=== PATIENT | female | born 1975 | race Caucasian/White ===

== ENCOUNTER 2016-08-08 10:24 | Emergency (ER) | payer OTHER ==
[2016-08-08 11:25] LABS: COLOR YELLOW; LEUKOCYTE ESTERASE,URINE TRACE (NEGATIVE); NITRITE,URINE NEGATIVE (NEGATIVE)
[2016-08-08 11:37] LABS: BACTERIA 2+ /hpf (NONE SEEN); MUCUS TRACE /lpf (NONE-1+)
--- NOTE | 2016-08-08 12:04 | EDPHY ---
H & P Stated Complaint: 20 wks preg; R flank pain and dysuria;body aches;subj fever Time Seen by Provider: 08/08/16 11:08 HPI/ROS: CHIEF COMPLAINT: Flank pain HISTORY OF PRESENT ILLNESS: This is a 40-year-old female P 1 G 0 who is 20 weeks complaining of right flank pain. 2 days ago she noted diffuse aches and pains and subsequently developed right flank pain. The flank pain is worse with urination. She also reports urinary frequency (possibly related to her ) and dysuria. She has not had fever but woke up drenched in sweat for the past 2 nights. She does have a history of urinary tract infection and pyelonephritis prior to this . She was treated for urinary tract infection at the end of May. She denies abdominal pain, nausea, vomiting, diarrhea, and vaginal bleeding. REVIEW OF SYSTEMS: A ten point review of systems was performed and is negative with the exception of the items mentioned in the HPI. Source: Patient Exam Limitations: No limitations - Personal History LMP (Females 10-55): EDC: 12/27/16 Current Tetanus Diphtheria and Acellular Pertussis (TDAP): Yes - Medical/Surgical History Other PMH: - Social History Smoking Status: Never smoked Alcohol Use: None Additional Social History: She is . She works with [employer]. - Physical Exam Exam: General Appearance: Alert. Vital signs reviewed. Eyes: Pupils equal and round, no conjunctival injection, no discharge. Anicteric. ENT, Mouth: Mucous membranes are moist, no oropharyngeal erythema or edema. Neck: No lymphadenopathy, supple. Respiratory: Lungs are clear to auscultation; no wheezes, rales, or rhonchi. Cardiovascular: Regular rate and rhythm; no murmur, rub, or gallop. Gastrointestinal: Abdomen is gravid, soft and nontender, bowel sounds normal. heart tones 160. Skin: Warm and dry, no rashes on exposed skin, normal color. Back: Nontender to palpation over the thoracolumbar spine. Right CVAT. Extremities: No lower extremity edema, no calf tenderness or swelling. Neurological: Alert and oriented. Moving all four extremities easily and equally. Psychiatric: Normal affect. Constitutional: Initial Vital Signs Temperature (C) 36.5 C 08/08/16 10:26 Heart Rate 84 08/08/16 10:26 Respiratory Rate 16 08/08/16 10:26 Blood Pressure 130/78 H 08/08/16 10:26 O2 Sat (%) 98 08/08/16 10:26 O2 Delivery Mode Room Air Allergies/Adverse Reactions: No Known Allergies Allergy (Unverified 08/08/16 10:31) Home Medications: Medication Instructions Recorded Ferrous Sulfate [Iron] 325 mg PO 08/08/16 Vits W-Ca,Fe,FA(<1Mg) 1 each PO 08/08/16 [ Vitamins] Medical Decision Making ED Course/Re-evaluation: 40-year-old female who is 20 weeks . heart tones are 160. She presents with signs and symptoms of urinary tract infection, possible early pyelonephritis. White blood cell count is normal. Urinalysis shows leukocyte esterase, 2+ bacteria. I have spoken with the on-call provider for OBGYN and it is recommended that she be seen on the L and D floor where she will receive IV fluids and antibiotics. An IV was placed in the emergency department. Fluids and antibiotics will be given by the OBGYN service. She was discharged from the emergency department in stable condition and will present immediately to the OBGYN service. Differential Diagnosis: Flank pain including but not limited to musculoskeletal causes, kidney stone, urinary tract infection, pyelonephritis, shingles, and intra-abdominal causes such as diverticulitis and appendicitis. - Data Points Laboratory Results: Laboratory Results 08/08/16 12:20 Departure - Departure Disposition: [facility] Inpatient Acute Clinical Impression: Pyelonephritis Condition: Good Instructions: Kidney Infection (ED) Additional Instructions: Go directly to labor and delivery where they will give you some intravenous fluids and start antibiotics. Referrals: Jacque Kendrick MD [Primary Care Provider] - As per Instructions Darline Hernandez CNM [Certified Nurse Computational Theory Scientist] - As per Instructions
[2016-08-08 12:41] VITALS: BP 122/68; PULSE 89; RESP 18; TEMP 98.4; O2SAT 96
[2016-08-08 13:32] LABS: % IMMATURE GRANULYOCYTES 0.3 % (0.0-1.1); ABSOLUTE IMMATURE GRANULOCYTES 0.02 10^3/uL (0.00-0.10); ADD DIFF? NO; ADD MORPH? NO; ADD SCAN? NO; ATYPICAL LYMPHOCYTE FLAG 0 (0-99); FRAGMENT RBC FLAG 0 (0-99); HEMATOCRIT 36.9 % (38.0-47.0); HEMOGLOBIN 12.3 g/dL (12.6-16.3); LEFT SHIFT FLG 0 (0-99); LIPEMIA HEMOLYSIS FLAG 80 (0-99); MEAN CELL HEMOGLOBIN 31.1 pg (27.9-34.1); MEAN CELL HEMOGLOBIN CONCENTR. 33.3 g/dL (32.4-36.7); MEAN CELL VOLUME 93.4 fL (81.5-99.8); MEAN PLATELET VOLUME 9.3 fL (8.7-11.7); PLATELET CLUMPS FLAG 0 (0-99); PLATELET COUNT 202 10^3/uL (150-400); RED BLOOD CELL COUNT 3.95 10^6/uL (4.18-5.33); RED CELL DISTRIBUTION WIDTH 13.5 % (11.5-15.2)
[2016-08-08] MEDS ORDERED: LR 1,000 ML IV ONE (14:00)
[2016-08-08] MEDS ORDERED: ACETAMINOPHEN 500 MG TAB PO ONE (14:00)
== END 2016-08-08 12:42 | disposition home or self-care (01) ==
DX: O23.02 Infections of kidney in pregnancy, second trimester (principal); Z3A.20 20 weeks gestation of pregnancy

== ENCOUNTER 2016-08-08 13:43 | Observation (INO) | payer OTHER ==
[2016-08-08] MEDS ORDERED: ceFAZolin 2 GM/DEXTROSE 100 ML IV ONE (13:56)
[2016-08-08] MEDS ORDERED: LR 1,000 ML IV ONE ×2 (13:58→14:00)
[2016-08-08] MEDS ORDERED: ACETAMINOPHEN 500 MG TAB PO ONE (14:00)
--- NOTE | 2016-08-08 14:02 | OBPROG ---
OBG Progress Note Assessment/Plan: Assessment: fever right flank pain doppler wnl iv fluids 1l Plan:tylenol, iv antibiotics labs cbc ua consult, macrobid for discharge fu wednesday in office 08/08/16 14:01 Subjective: right flank pain. afebrile 37.5 vs wnl doppler 160 denies leaking bleeding or cramping NKDA feeling not so great since rt flank pain since wednesday consult dr. marci fonseca for poc cbc run ua and culture sent Current Contraction Pattern: Other (Specify) (none) FHR (bpm): 160 (doppler) Membranes: Intact ICD10 Worksheet Patient Problems: Problems Problem Status Onset Pyelonephritis Acute
[2016-08-08] MEDS ORDERED: NITROFURANTOIN MACROBID 100 MG CAP PO ONE (15:40)
--- NOTE | 2016-08-08 15:45 | OBPROG ---
OBG Progress Note Assessment/Plan: Assessment: febrile unchanged 37.7 right flank pain/ diminished somewhat per patient doppler wnl antibiotics infused macrobid 200mg po now able to eat a regular diet cbc wnl dischagre instructions given for fu and reasons to return Plan: macrobid script given, fu wednesday. rest, fluids tylenol to assist with fever 08/08/16 14:01 08/08/16 15:42 ICD10 Worksheet Patient Problems: Problems Problem Status Onset Pyelonephritis Acute
--- NOTE | 2016-08-08 16:20 | GHP ---
[f rep st] HISTORY AND PHYSICAL DATE OF ADMISSION: 08/08/2016 Patient called early a.m. of 08/08/2016 to the answering service, and I returned her call. Patient with a complaint of right flank pain since Wednesday, some urinary symptoms since , and greater symptoms today on 08/08/2016 of frequency, urgency, as well as right flank pain whenever trying to urinate. Patient was transferred from the emergency room to Labor and Delivery, where patient recei chet IV fluids, 1 L of LR, Doppler where the heart rate of 19-6/7 weeks was 160. A call to Dr. Jordana Johnson for a consult on plan of care. Ancef 2 g IV piggyback was started on patient. Regular diet . The patient has received care through [facility] since initial . Patient is a 1 para 0, with an EDC of 12/27/2016, which gives her a gestational age of 19-6/7 weeks. De nies leaking, bleeding or any abdominal cramping, contractions. PAST MEDICAL HISTORY: Patient has frequent UTIs, denies other medical history. PAST SURGICAL HISTORY: Benign. HISTORY: Patient is a 1 para 0, AMA, at 19-6/7 weeks. In the emergency room a CBC was completed, WBC were 6.54, hematocrit 36.9, hemoglobin was 12.3, plat elet count was 202. The rest of the CBC was within normal limits. A UA was completed, trace leukoc ytes, 1-3 RBCs, WBCs were 10-15, 2+ bacteria, trace mucus, everything else was negative. PHYSICAL EXAMINATION: GENERAL: Patient was awake, alert and oriented x3 . LUNGS: Clear bilaterall y. Bowel sounds are positive in all 4 quadrants. ABDOMEN: Soft on palpation. VITAL SIGNS: Other than temperature were within normal limits. Initially, on initial assessment of temperature, patie nt was 37.5, several hours later, 37.7. EXTREMITIES: DTRs were 1+ bilaterally. Clonus is negative . Homans' sign is negative bilaterally. PLAN OF CARE: One dose of Ancef 2 g, IV fluids 1500 mL total, regular diet, Macrobid on discharge t o home as long as all of assessment while here in the hospital remains stable. Some medication for pain, hydrocodone, if patient needs it, call for appointment for Wednesday for a followup. Consult harry Johnson on plan of care. ALLERGIES: NKDA. /[id number]/MODL
== END 2016-08-08 16:15 | disposition home or self-care (01) ==
LOC: FLD 13:43
PROVIDERS: ADMIT Advanced Practice Midwife; ATTEND Obstetrics & Gynecology
DX: O23.42 Unspecified infection of urinary tract in pregnancy, second trimester (principal); O09.512 Supervision of elderly primigravida, second trimester; Z3A.19 19 weeks gestation of pregnancy
CPT/HCPCS: G0378; J0690

== ENCOUNTER 2016-12-25 06:05 | Inpatient (IN) | payer OTHER ==
[2016-12-25] MEDS ORDERED: LR 1,000 ML IV PRN (06:42)
[2016-12-25] MEDS ORDERED: EPSOM SALT 454 GM TP PRN (06:42)
[2016-12-25] MEDS ORDERED: OXYTOCIN/RINGERS LACTATE 1,000 ML IV PRN (06:42)
[2016-12-25] MEDS ORDERED: OLIVE OIL 118 ML BTL MISC PRN (06:42)
[2016-12-25] MEDS ORDERED: TERBUTALINE SULFATE 1 MG/ML VIAL IV PRN (06:42)
[2016-12-25 06:53] LABS: % IMMATURE GRANULYOCYTES 0.5 % (0.0-1.1); ABSOLUTE IMMATURE GRANULOCYTES 0.04 10^3/uL (0.00-0.10); ADD DIFF? NO; ADD MORPH? NO; ADD SCAN? NO; ATYPICAL LYMPHOCYTE FLAG 0 (0-99); FRAGMENT RBC FLAG 0 (0-99); HEMOGLOBIN 13.1 g/dL (12.6-16.3); LEFT SHIFT FLG 0 (0-99); LIPEMIA HEMOLYSIS FLAG 90 (0-99); MEAN CELL HEMOGLOBIN 32.7 pg (27.9-34.1); MEAN CELL HEMOGLOBIN CONCENTR. 34.5 g/dL (32.4-36.7); MEAN CELL VOLUME 94.8 fL (81.5-99.8); MEAN PLATELET VOLUME 10.6 fL (8.7-11.7); PLATELET CLUMPS FLAG 10 (0-99); PLATELET COUNT 183 10^3/uL (150-400); RED BLOOD CELL COUNT 4.01 10^6/uL (4.18-5.33); RED CELL DISTRIBUTION WIDTH 13.3 % (11.5-15.2)
[2016-12-25] MEDS ORDERED: OXYTOCIN/LR *LOW DOSE PROTOCOL IV SCH (07:30)
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
[2016-12-25 10:15] LABS: ALANINE AMINOTRANSFERASE 29 IU/L (9-52); ASPARTATE AMINOTRANSFERASE 28 IU/L (14-46); BILIRUBIN,TOTAL 1.2 mg/dL (0.1-1.4); BILIRUBIN-CONJUGATED 0.3 mg/dL (0.0-0.5); BILIRUBIN-UNCONJUGATED 0.9 mg/dL (0.0-1.1); CREATININE 0.6 mg/dL (0.6-1.0); GLOMERULAR FILTRATION RATE > 60; LACTATE DEHYDROGENASE 430 IU/L (313-618); URIC ACID 4.1 mg/dL (2.5-6.8)
[2016-12-25] MEDS ORDERED: fentaNYL 2MCG/ML/BUP 0.1% RTU 100 ML BAG EP ONE (13:18)
[2016-12-25] MEDS ORDERED: PHENYLEPHRINE HCL 100 MCG/ML SYR ONE (13:19)
[2016-12-25] MEDS ORDERED: BUPIVACAINE 0.25% 30 ML SDV ONE (13:19)
[2016-12-25] MEDS ORDERED: fentaNYL 100 MCG/2 ML INJ ONE ×2 (13:20→20:41)
--- NOTE | 2016-12-25 14:17 | OBPROG ---
OBG Labor Progress Note Assessment/Plan: Assessment: 41 y/o @ 39 5/7 weeks IOL secondary to AMA Plan: AROM for clear fluid now and she is comfortable with her epidural. Continue pitocin and will check in 2 hours. status is reassuring. 12/25/16 14:15 Subjective: Pt is now comfortable with her epidural. Objective: 12/25/16 06:35 12/25/16 09:30 Patient ABO/Rh O POSITIVE 12/25/16 06:35 Uric Acid 4.1 mg/dL (2.5-6.8) 12/25/16 09:30 Total Bilirubin 1.2 mg/dL (0.1-1.4) 12/25/16 09:30 Conjugated Bilirubin 0.3 mg/dL (0.0-0.5) 12/25/16 09:30 Unconjugated Bilirubin 0.9 mg/dL (0.0-1.1) 12/25/16 09:30 AST 28 IU/L (14-46) 12/25/16 09:30 ALT 29 IU/L (9-52) 12/25/16 09:30 Lactate Dehydrogenase 430 IU/L (313-618) 12/25/16 09:30 - SVE Dilation (cm): 4 Effacement (%): 75 Station: -2 Glover FHR (bpm): 140 FHR Pattern Variability: Moderate FHR Category: 1 Membranes: AROM Amniotic Fluid Color: Clear - Procedures Non-surgical Procedures: Amniotomy Oxytocin Orders Assessment - Pre-Induction/Augmentation Assessment Gestational Age: 39 week(s) and 5 day(s) ICD10 Worksheet Patient Problems: Problems Problem Status Onset Elective induction of labor planned Acute - ICD10 Problem Qualifiers (1) Elective induction of labor planned
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
[2016-12-25] MEDS ORDERED: ONDANSETRON 4 MG/2 ML VIAL IVP PRN ×2 (14:54→21:51)
[2016-12-25] MEDS ORDERED: PHENYLEPHRINE HCL 100 MCG/ML SYR IVP PRN (14:54)
--- NOTE | 2016-12-25 14:54 | POSTANESTH ---
Post Anesthetic Evaluation Cardiovascular Status: Normal, Stable Respiratory Status: Normal, Stable, Similar to Pre-op Cond. Level of Consciousness/Mental Status: Can Participate in Eval, Alert and Oriented Pain Control: Adequate, Prn Tx Ordered Nausea/Vomiting Control: Adequate, Prn Tx Ordered Complications Possibly Related to Anesthesia: None Noted
[2016-12-25] MEDS ORDERED: fentaNYL 2MCG/ML/BUP 0.1% RTU 100 ML EP SCH (15:00)
[2016-12-25] MEDS ORDERED: LR 500 ML IV SCH (15:00)
[2016-12-25] MEDS ORDERED: LR 500 ML IV ONE (20:35)
[2016-12-25] MEDS ORDERED: ceFAZolin 2 GM/DEXTROSE 100 ML IV ONE (20:35)
[2016-12-25] MEDS ORDERED: CEFAZOLIN 2 GM/DEXTROSE/100 ML BAG IV ONE (20:40)
[2016-12-25] MEDS ORDERED: LIDO/EPI 2% **for epidural** 20 ML SDV ONE (20:41)
[2016-12-25] MEDS ORDERED: LR 1,000 ML IV SCH (21:00)
[2016-12-25] MEDS ORDERED: METHYLERGONOVINE MAL 0.2 MG/ML INJ ONE (21:02)
[2016-12-25] MEDS ORDERED: ONDANSETRON 4 MG/2 ML VIAL ONE ×2 (21:13)
[2016-12-25] MEDS ORDERED: DEXAMETHASONE 4 MG/ML VIAL ONE ×2 (21:13)
[2016-12-25] MEDS ORDERED: OXYTOCIN 100 UNITS/10 ML VIAL ONE (21:13)
[2016-12-25 21:20] LABS: BASE EXCESS CORD -4.3 mEq/L (-13.6--3.2); CORD BLOOD PCO2 48.5 mmHg (37-60); PH ARTERIAL CORD BLOOD 7.29 (7.10-7.37)
[2016-12-25 21:38] LABS: PH VENOUS CORD BLOOD 7.33 (7.20-7.42)
[2016-12-25] MEDS ORDERED: MEPERIDINE 25 MG/ML SYR ONE (21:38)
[2016-12-25] MEDS ORDERED: NALOXONE HCL 0.4 MG/ML INJ IVP PRN (21:51)
[2016-12-25] MEDS ORDERED: SCOPOLAMINE HYDROBROMIDE 1.5 MG PATCH TD PRN (21:53)
--- NOTE | 2016-12-25 21:55 | POSTANESTH ---
Post Anesthetic Evaluation Cardiovascular Status: Normal, Stable Respiratory Status: Normal, Stable, Similar to Pre-op Cond. Level of Consciousness/Mental Status: Can Participate in Eval, Alert and Oriented Pain Control: Adequate, Prn Tx Ordered Nausea/Vomiting Control: Adequate, Prn Tx Ordered Complications Possibly Related to Anesthesia: None Noted (Epidural dosed for C Section, BP treated, comfortable for surgery, to PACU, no pain or nausea.)
[2016-12-25] MEDS ORDERED: PROMETHAZINE HCL 25 MG/ML INJ IVP PRN (22:36)
[2016-12-25] MEDS ORDERED: ACETAMINOPHEN 325 MG TAB PO PRN (22:36)
[2016-12-25] MEDS ORDERED: SIMETHICONE 80 MG TAB CHEW PO PRN (22:36)
[2016-12-25] MEDS ORDERED: DOCUSATE SODIUM 100 MG CAP PO PRN (22:36)
[2016-12-25] MEDS ORDERED: POLYETHYLENE GLYCOL 3350 17 GM PKT PO PRN (22:38)
[2016-12-25] MEDS ORDERED: KETOROLAC 30 MG/1 ML SDV ONE (22:38)
[2016-12-25] MEDS ORDERED: MAGNESIUM HYDROXIDE 30 ML UDCUP PO PRN (22:38)
[2016-12-25] MEDS ORDERED: LACTULOSE 20 GM/30 ML UDCUP PO PRN (22:38)
[2016-12-25] MEDS ORDERED: BISACODYL 10 MG SUPP PR PRN (22:38)
--- NOTE | 2016-12-25 22:44 | OBDEL ---
Info Type: Primary GBS+: No Indications for Delivery: Elective (AMA @ 39 5/7 weeks) Vaginal Delivery - Labor and Delivery Non-surgical Procedures: Amniotomy Cord Gases: Cord Gases Cord Blood PCO2 48.5 mmHg (37-60) 12/25/16 21:01 Cord Base Excess -4.3 mEq/L (-13.6--3.2) 12/25/16 21:01 Cord ABG pH 7.29 (7.10-7.37) 12/25/16 21:01 Cord VBG pH 7.33 (7.20-7.42) 12/25/16 21:01 Operative Report - Delivery Pre-op Diagnoses: IUP @ 39 weeks IOL secondary to AMA, with intolerance to labor Post-op Diagnoses: same Nulliparous Prior to Delivery: Yes Presentation at Delivery: Vertex Procedure: Emergent, Low Transverse Surgeon: Nishi Johnson Filling Machine Tender: Marion Davey Anesthesiologist: Brennon Quintero Salvage Supervisor/VET ASSISTANT: Kerline Hutchison L&D Analgesia/Anesthesia Type: Epidural Complications: Nucal Cord Findings: normal, uterus, tubes and ovaries, patient with a prominent sacrum IV Fluid (ml): 2,000 EBL: 800 Cord Gases: Cord Gases Cord Blood PCO2 48.5 mmHg (37-60) 12/25/16 21:01 Cord Base Excess -4.3 mEq/L (-13.6--3.2) 12/25/16 21:01 Cord ABG pH 7.29 (7.10-7.37) 12/25/16 21:01 Cord VBG pH 7.33 (7.20-7.42) 12/25/16 21:01 Data [place] Delivery Date: 12/25/16 Delivery Time: 21:00 KATE: 12/27/16 Gestational Age: 39 week(s) and 5 day(s) Sex of Infant: Male Weight (gm): 3814 g Score (1 Min): 8 Score (5 Min): 9 ICD10 Worksheet Patient Problems: Problems Problem Status Onset Elective induction of labor planned Acute intolerance to labor, delivered, current hospitalization Acute - ICD10 Problem Qualifiers (1) Elective induction of labor planned (2) intolerance to labor, delivered, current hospitalization
[2016-12-25] MEDS: KETOROLAC 30 MG/1 ML SDV IVP PRN (22:45)
[2016-12-26] MEDS: HYDROCODONE/APAP 5/325 TAB PO PRN ×6 (00:06→20:35)
--- NOTE | 2016-12-26 00:43 | GOP ---
[f rep st] OPERATIVE REPORT DATE OF OPERATION: 12/25/2016 SURGEON: Nishi Johnson MD FELLER HAND: Dr. Marion Peters. ANESTHESIA: Epidural anesthesia. ANESTHESIOLOGIST: Dr. Brennon Quintero. PREOPERATIVE DIAGNOSIS: Intrauterine at 39-5/7 weeks gestation. Induction of labor today secondary to an advanced maternal age with intolerance to labor. POSTOPERATIVE DIAGNOSIS: Intrauterine at 39-5/7 weeks gestation. Induction of labor toda y secondary to an advanced maternal age with intolerance to labor. PROCEDURE PERFORMED: Primary low transverse section. FINDINGS: Viable female, Apgars of 8 and 9, weight of 3814 g. ESTIMATED BLOOD LOSS: 800 cc. INDICATIONS: The patient is a 41-year-old 1, para 0, with a last menstrual period of 2015 and an EDC of 12/27/2016, confirmed by a 12 week ultrasound, who was scheduled for induction of labor on 12/25/2016 secondary to advanced maternal age and recommended delivery by 40 weeks. The marco murphy had a Barreto catheter placed on the night of the . When she was admitted the morning of , she was 3 cm. Pitocin was started. She did well. Received an epidural for pain control, ar tificial rupture of membranes for clear fluid, and she progressed to fully dilated. status wa s reassuring throughout the day. When patient began her second stage of labor, the fetus began show ing variable decelerations that were deep in nature with a kenna in the 70s with a decrease in varia bility at the kenna of the deceleration and having rebound tachycardia to the 170s to 180s with also decreased variability. We tried resuscitative measures with oxygen, position changes, stopping the Pitocin and the baby continued to have tachycardia but not severe decelerations. On examination, marco murphy had a very prominent sacrum as well as a narrow pubic arch, and it was felt that it would be a difficult delivery because of cephalopelvic disproportion. Because of intolerance to the pu shing and the fact that in my clinical judgment it was going to be a very difficult vaginal delivery even with tolerance, decision was made to proceed with primary lower transverse sect ion. The patient was consented for the procedure. She understood the risks and benefits, the risks including bleeding, infection, damage to internal organs, uterus, tubes, ovaries, bowel, bladder, n erves, blood vessels, ureters, risk of injury, risk of hemorrhage requiring blood transfusion, hysterectomy, or . She understood these risks and benefits, agreed to proceed. DESCRIPTION OF PROCEDURE: Patient was taken to the operating room where her epidural was dosed and found to be adequate. She was prepped and draped in dorsal supine position with a leftward tilt, an d a Barreto catheter was placed in her bladder. After adequate anesthesia was assured, a transverse s kin incision was made with a scalpel, and the incision was carried down to the underlying layer of f ascia with a knife. The fascia was incised in midline. Fascial incision was extended laterally wit h Cloud scissors. Superior aspect of the fascial incision was grasped with Livia clamps, elevated, and the rectus muscles were dissected off sharply. Inferior aspect of the fascial incision was gras ped with Livia clamps, elevated, and the rectus muscles were dissected off sharply. Rectus muscles were in the midline. Peritoneum was entered sharply. The incision was extended superior and inferiorly with good visualization of the bladder. Bladder blade was inserted. Vesicouterine peritoneum was grasped with the pickups, entered sharply with Metzenbaum scissors. The incision was extended laterally and bladder flap was created digitally. The uterus was incised with a knife. T here was clear amniotic fluid upon entry into the uterine cavity. The incision was extended lateral ly with bandage scissors. The was delivered atraumatically. There was a nuchal cord x1 that was reduced. The cord was clamped and cut. The was handed off to the waiting nurs e practitioners. Cord blood gas as well as cord bloods were sent. The placenta was removed manuall y. The uterus was exteriorized, cleared of all clots and debris. The uterine incision was repaired with 0 Vicryl in a running, locked fashion. Second imbricating layer of suture was performed with 0 Vicryl and good hemostasis was obtained. The uterus was returned to the abdomen. Gutters were cl eared of all clots and debris. Reinspection of the uterine incision again assured hemostasis. The rectus muscles were approximated with 2-0 Vicryl in inverted mattress fashion. The fascia was close d with #1 Vicryl in a running fashion. Subcutaneous layer was closed with 2-0 Vicryl and the skin w as closed with 4-0 Vicryl. The patient tolerated the procedure well. Sponge, lap, needle, and inst rument counts were correct x3. Patient went to the recovery room in good condition. FLUID REPLACEMENT: 1999 cc /[id number]/MODL
[2016-12-26] MEDS: KETOROLAC 30 MG/1 ML SDV IVP PRN ×3 (04:47→18:35)
[2016-12-26] MEDS: SENNOSIDES/DOCUSATE SODIUM TAB PO SCH ×2 (08:03→20:34)
[2016-12-26] MEDS ORDERED: SIMETHICONE 80 MG TAB CHEW PO PRN (08:57)
--- NOTE | 2016-12-26 09:02 | OBPP ---
Progress Note Assessment/Plan: Assessment: s/p 1LTCS secondary to intolerance to labor POD #1 - pt is stable Plan: Continue routine post-op care Encourage ambulation Dressing to be removed later this evening Pt may shower after dressing removed to see pt today Plan for d/c in 48 hrs 12/26/16 09:01 Subjective: Pt seen and examined. Doing well, no complaints. Having some gas pain this morning. Pain is well controlled with [place]. Pt is OOB, josh regular diet, carvalho in place, no flatus. No BM. Moderate lochia. Denies any f/c/n/v/CP or SOB. BF with some difficulty-cluster feeding. Denies any calf tenderness. Objective: 12/26/16 05:00 12/25/16 09:30 Patient ABO/Rh O POSITIVE 12/25/16 06:35 Uric Acid 4.1 mg/dL (2.5-6.8) 12/25/16 09:30 Total Bilirubin 1.2 mg/dL (0.1-1.4) 12/25/16 09:30 Conjugated Bilirubin 0.3 mg/dL (0.0-0.5) 12/25/16 09:30 Unconjugated Bilirubin 0.9 mg/dL (0.0-1.1) 12/25/16 09:30 AST 28 IU/L (14-46) 12/25/16 09:30 ALT 29 IU/L (9-52) 12/25/16 09:30 Lactate Dehydrogenase 430 IU/L (313-618) 12/25/16 09:30 Temp Pulse Resp BP Pulse Ox 36.1 C 53 L 16 111/68 99 12/26/16 08:08 12/26/16 08:08 12/26/16 08:08 12/26/16 08:08 12/26/16 08:08 Uterine Position/Fundal Height: Umbilicus -2 Uterine Tone: Firm Physical Exam - Physical Exam General Appearance: WD/WN, alert, no apparent distress Respiratory: lungs clear, normal breath sounds Cardiac/Chest: regular rate, rhythm Abdomen: normal bowel sounds, non-tender, soft, flatus (No), incision (C/D/I with steri strips), dressing (Intact, dry) Extremities: non-tender, normal inspection Skin: normal color, warm/dry Neuro/Psych: alert, normal mood/affect, oriented x 3
[2016-12-26] MEDS: SIMETHICONE 80 MG TAB CHEW PO SCH ×2 (10:46→22:15)
[2016-12-26] MEDS ORDERED: SUCROSE 1 EA UDL ONE (21:24)
[2016-12-26] MEDS ORDERED: PATCH REMOVAL 1 EA PATCH TD ONE (21:53)
[2016-12-27] MEDS: IBUPROFEN 600 MG TAB PO PRN ×4 (00:38→18:14)
[2016-12-27] MEDS: SENNOSIDES/DOCUSATE SODIUM TAB PO SCH ×2 (09:01→22:22)
[2016-12-27] MEDS: HYDROCODONE/APAP 5/325 TAB PO PRN ×4 (09:01→22:22)
[2016-12-27] MEDS: SIMETHICONE 80 MG TAB CHEW PO SCH ×3 (09:03→23:09)
--- NOTE | 2016-12-27 13:07 | OBPP ---
Progress Note Assessment/Plan: Assessment: 41 y/o POD #2 s/p LTCS secondary to intolerance to labor Plan: Ambulate with assistance. Po pain meds, bowel protocol and support. 12/25/16 14:15 12/27/16 13:06 Subjective: Pt is doing well this am. She has good pain control with [place] and Ibuprofen. She is ambulating, voiding and has min lochia. Breast feeding is going well and baby is doing well. Objective: 12/26/16 05:00 12/25/16 09:30 Patient ABO/Rh O POSITIVE 12/25/16 06:35 Uric Acid 4.1 mg/dL (2.5-6.8) 12/25/16 09:30 Total Bilirubin 1.2 mg/dL (0.1-1.4) 12/25/16 09:30 Conjugated Bilirubin 0.3 mg/dL (0.0-0.5) 12/25/16 09:30 Unconjugated Bilirubin 0.9 mg/dL (0.0-1.1) 12/25/16 09:30 AST 28 IU/L (14-46) 12/25/16 09:30 ALT 29 IU/L (9-52) 12/25/16 09:30 Lactate Dehydrogenase 430 IU/L (313-618) 12/25/16 09:30 Temp Pulse Resp BP Pulse Ox 36.2 C 79 14 107/74 97 12/27/16 08:15 12/27/16 08:15 12/27/16 08:15 12/27/16 08:15 12/27/16 08:15 Uterine Position/Fundal Height: Umbilicus -2 Uterine Tone: Firm Physical Exam - Physical Exam General Appearance: WD/WN, alert, no apparent distress Neck: non-tender, full range of motion, supple Respiratory: chest non-tender, lungs clear, normal breath sounds Cardiac/Chest: regular rate, rhythm Abdomen: normal bowel sounds, incision (c/d/i) Extremities: swelling (no), Ash's sign (neg)
[2016-12-28] MEDS: IBUPROFEN 600 MG TAB PO PRN ×3 (02:30→14:35)
[2016-12-28] MEDS: HYDROCODONE/APAP 5/325 TAB PO PRN ×4 (02:31→16:14)
[2016-12-28] MEDS: SENNOSIDES/DOCUSATE SODIUM TAB PO SCH ×2 (08:33→19:25)
[2016-12-28] MEDS: SIMETHICONE 80 MG TAB CHEW PO SCH ×3 (08:33→19:37)
--- NOTE | 2016-12-28 12:46 | OBPP ---
Progress Note Assessment/Plan: Assessment: well ff@u scant rubra lochia incision well approximated pain well managed ambulatory Plan:expectant management po day 3 12/28/16 12:44 Subjective: Doing well denies difficulties. PAin well managed Objective: 12/26/16 05:00 12/25/16 09:30 Patient ABO/Rh O POSITIVE 12/25/16 06:35 Uric Acid 4.1 mg/dL (2.5-6.8) 12/25/16 09:30 Total Bilirubin 1.2 mg/dL (0.1-1.4) 12/25/16 09:30 Conjugated Bilirubin 0.3 mg/dL (0.0-0.5) 12/25/16 09:30 Unconjugated Bilirubin 0.9 mg/dL (0.0-1.1) 12/25/16 09:30 AST 28 IU/L (14-46) 12/25/16 09:30 ALT 29 IU/L (9-52) 12/25/16 09:30 Lactate Dehydrogenase 430 IU/L (313-618) 12/25/16 09:30 Temp Pulse Resp BP Pulse Ox 36.8 C 59 L 18 116/75 94 12/28/16 08:00 12/28/16 08:00 12/28/16 08:00 12/28/16 08:00 12/28/16 08:00 Uterine Position/Fundal Height: At Umbilicus Physical Exam - Physical Exam General Appearance: WD/WN, alert, no apparent distress Respiratory: chest non-tender, lungs clear, normal breath sounds Cardiac/Chest: regular rate, rhythm Abdomen: normal bowel sounds Extremities: normal range of motion, Ash's sign (negative bilaterally) DTR- Lower Extremities: Knee (R): 1+, Knee (L): 1+ (no clonus bilaterally) Skin: normal color, warm/dry Neuro/Psych: no motor/sensory deficits, alert, normal mood/affect, oriented x 3
[2016-12-29] MEDS: SENNOSIDES/DOCUSATE SODIUM TAB PO SCH (08:43)
[2016-12-29] MEDS: SIMETHICONE 80 MG TAB CHEW PO SCH ×2 (08:43→13:26)
[2016-12-29] MEDS: IBUPROFEN 600 MG TAB PO PRN (08:43)
--- NOTE | 2016-12-29 09:52 | OBGCSDC ---
General Delivery Information - General Info : 1 Para: 1 Delivery Physician/CNM: Nishi Johnson Labs: Patient ABO/Rh O POSITIVE 12/25/16 06:35 Hct 40.3 % (38.0-47.0) 12/26/16 05:00 Vaginal - Diagnosis Presentation at Delivery: Vertex - Operations/Procedures Non-surgical Procedures: Amniotomy L&D Analgesia/Anesthesia Type: Epidural, Spinal - Delivery Number of Prior Sections: 0 Indications for Current Section: Non-reas. Status Type: Primary Non-surgical Procedures: Amniotomy Surgical Procedures: Unscheduled, Emergent, Low Transverse Intra-op Complications: None L&D Analgesia/Anesthesia Type: Epidural, Spinal - Hospital Course Antepartum: uncomplicated . history of pelvic fracture. negative verfiy Intrapartum: induction for AMA >40. carvalho bulb placed. pitocin. labor. epidural. progressed to complete. intolerance of labor with pushing. arrest of descent : doing great. breast feeding is going well. rash on upper abdomen from drape in OR. denies headache and changes in vision. [place] [facility] [place] Delivery Date: 12/25/16 Delivery Time: 21:00 KATE: 12/27/16 Gestational Age: 40 week(s) and 2 day(s) Sex of Infant: Male [place] Weight (gm): 3418 g Score (1 Min): 8 Score (5 Min): 9 Discharge Information - Discharge Information Discharge Medications: Iron, Ibuprofen, Oxycodone Condition: Good Instruction/Follow Up: Two Weeks, Four Weeks, Six Weeks Discharge Physician/CNM: Marilyn Francis
--- NOTE | 2016-12-29 09:55 | OBPP ---
Progress Note Assessment/Plan: Assessment: 41 yo pod$ 4 s/p PLTCS for intolerance of labor with pushing anemia breast feeding abdominal rash Plan: routine post care topical steroids sparingly to rash discharge instructions 12/29/16 09:52 Subjective: patient is doing well. pain is well controlled. normal lochia. breast feeding is going well. denies headache or changes in vision. ambulating. having regular bowel movements. developed very itchy rash on upper abdomen. voiding without difficulty. Objective: 12/26/16 05:00 12/25/16 09:30 Patient ABO/Rh O POSITIVE 12/25/16 06:35 Uric Acid 4.1 mg/dL (2.5-6.8) 12/25/16 09:30 Total Bilirubin 1.2 mg/dL (0.1-1.4) 12/25/16 09:30 Conjugated Bilirubin 0.3 mg/dL (0.0-0.5) 12/25/16 09:30 Unconjugated Bilirubin 0.9 mg/dL (0.0-1.1) 12/25/16 09:30 AST 28 IU/L (14-46) 12/25/16 09:30 ALT 29 IU/L (9-52) 12/25/16 09:30 Lactate Dehydrogenase 430 IU/L (313-618) 12/25/16 09:30 Temp Pulse Resp BP Pulse Ox 36.8 C 70 16 116/70 98 12/28/16 20:00 12/28/16 20:00 12/28/16 20:00 12/28/16 20:00 12/28/16 20:00 Physical Exam - Physical Exam General Appearance: WD/WN, alert, no apparent distress Neck: non-tender, full range of motion, supple Respiratory: chest non-tender, lungs clear, normal breath sounds Cardiac/Chest: normal peripheral pulses, regular rate, rhythm Abdomen: normal bowel sounds, hypoactive bowel sounds, non-tender Extremities: normal range of motion, non-tender, normal inspection, normal capillary refill, pedal edema Skin: normal color, warm/dry Neuro/Psych: no motor/sensory deficits, alert, normal mood/affect, oriented x 3
[2016-12-29 10:37] VITALS: BP 127/81; PULSE 80; RESP 14; TEMP 97.6; O2SAT 97
== END 2016-12-29 12:25 | disposition home or self-care (01) | DRG 766 ==
LOC: FLD 06:05 → FOB 23:19
PROVIDERS: ADMIT Obstetrics & Gynecology; ATTEND Obstetrics & Gynecology
PROC: 10D00Z1 Extraction of Products of Conception, Low, Open Approach (ICD-10-PCS; principal; 2016-12-25)
PROC: 3E033VJ Introduction of Other Hormone into Peripheral Vein, Percutaneous Approach (ICD-10-PCS; principal; 2016-12-25)
DX: O76 Abnormality in fetal heart rate and rhythm complicating labor and delivery (principal); Z37.0 Single live birth; Z3A.40 40 weeks gestation of pregnancy; O48.0 Post-term pregnancy
CPT/HCPCS: J0690; J1100; J1885; J2210; J2370; J2405; J2590; J3010

== ENCOUNTER → 2018-08-24 | Outpatient (CLI) | payer OTHER | LOC: FIMAGING 07:34 | PROVIDERS: ATTEND Obstetrics & Gynecology | DX: Z12.31 Encounter for screening mammogram for malignant neoplasm of breast (principal) ==

== ENCOUNTER → 2018-09-21 | Outpatient (CLI) | payer OTHER | LOC: FIMAGING 12:47 | PROVIDERS: ATTEND Obstetrics & Gynecology | DX: R92.8 Other abnormal and inconclusive findings on diagnostic imaging of breast (principal) ==